=== PATIENT | male | born 1940 | race Caucasian/White ===

== ENCOUNTER → 2016-05-12 08:27 | Outpatient (CLI) | payer MEDICARE, OTHER ==
[2012-09-02 07:48] VITALS: BMI 32.6
[~2016-05-12 08:27] MED LIST: BAYER CHEWABLE81 MG PO; BROVANA15 MCG/2 M NEB; CARDIZEM120 MG PO; COUMADIN5 MG PO; DOXYCYCLINE HY100 M2 PO; DUONEB 2.5-0.5 M3 ML NEB; ENDOCET 10-3251 TAB PO; GLIMEPIRIDE1 MG PO; GLUCOPHAGE500 MG PO; K-DUR20 MEQ PO; LASIX40 MG PO; LISINOPRIL10 MG PO; METROGEL 0.75 %45 GM TP; NEURONTIN 300300 MG PO; OXYGEN INH; PROVENTIL/2.5 MG/3 M NEB; SPIRIVA18 MCG INH; TACLONEX OINTME60 GM TP; TIKOSYN250 MCG PO; VICTOZA0.6 MG/0.1 SQ; ZOCOR10 MG PO
== END | disposition home or self-care (01) ==
LOC: D.RAD 08:27
DX: R13.10 Dysphagia, unspecified (principal); R12 Heartburn

== ENCOUNTER 2016-08-06 13:00 | Day surgery (SDC) | payer MEDICARE, OTHER ==
[~2016-08-06] VITALS: Ht 177.8 cm; Wt 103.0 kg
--- NOTE | ~2016-08-06 | OP ---
PATIENT NAME: FRANK SARABIA MEDICAL RECORD: [id number] :38 LOCATION:[facility]loOPS ADMISSION DATE: SURGEON: TIGIST MADRID DO DATE OF OPERATION: 08/06/2016 PROCEDURE: EGD with biopsies. INDICATIONS FOR PROCEDURE: Dysphagia and heartburn. SCOPE: Olympus video gastroscope. MEDICATIONS: Propofol IV per anesthesia. ESTIMATED BLOOD LOSS: Minimal. COMPLICATIONS: None. FINDINGS: Informed consent was given. The patient was made comfortable with the above medication. After reaching an adequate level of sedation by slow IV push, the patient was placed on his left side. The endoscope was then advanced under direct visualization through the mouth to the second portion of the duodenum. The upper, middle, and distal thirds of the esophagus appeared normal. At the GE junction, there was evidence of LA class A reflux-induced esophagitis. Biopsies were taken at the GE junction. The endoscope was then advanced beyond the GE junction and retroflexed to view the cardia, where a large hiatal hernia was visualized. There was some evidence of prior intervention here, but the fundoplication is not intact. The fundus and body of the stomach appeared normal as did the antrum and prepyloric region. Random biopsies were taken to rule out H. pylori and to submit for histology. The endoscope was advanced beyond the pylorus into the duodenum where the bulb and second portion of the duodenum appeared normal. The endoscope was then withdrawn from the patient. The patient tolerated the procedure well and there were no complications. IMPRESSION: 1. LA class A reflux-induced esophagitis. Biopsies taken. 2. Large hiatal hernia with evidence of prior intervention. PLAN AND RECOMMENDATIONS: 1. Discharge home when recovery parameters are met. 2. Gastroesophageal reflux diet and precautions. 3. Continue current medications. 4. Add Protonix 40 mg daily q.a.m. times 30 days. 5. Follow up in the GI clinic as needed. TRANSINT:[id number] Voice Confirmation ID: [id number] DOCUMENT ID: [id number] OPERATIVE REPORT [id number] FRANK SARABIATIGIST QUIJANO DO CC: [id number] DICTATION DATE: 08/06/16 1709 SOLUTIONS ANALYST: 08/07/16 0014 [facility] 08/06/16 [place] [address]
[2016-08-06] MEDS ORDERED: MINOCIN100 MG PO (14:06)
[2016-08-06 14:25] VITALS: BP 112/66; Ht 177.8 cm; Wt 103.0 kg
[2016-08-06 14:34] LABS: ANION GAP 8.3 mmol/L (8-16); CALCIUM 8.9 mg/dL (8.5-10.1); CARBON DIOXIDE 34.2 mmol/L (21.0-32.0); CREATININE - SERUM 1.5 mg/dL (0.6-1.3); POTASSIUM - SERUM 4.5 mmol/L (3.5-5.1)
[2016-08-06 14:57] LABS: BASOPHILS 0.3 % (0-2); HEMATOCRIT 43.8 % (42.0-54.0); HEMOGLOBIN 13.6 g/dL (13.5-17.5); IMMATURE GRANULOCYTES 0.3 % (0-5); MCH 28.8 pg (26.0-34.0); MCHC 31.1 g/dL (31.0-37.0); MCV 92.6 fL (80.0-100.0); MEAN PLATELET VOLUME 11.4 fL (7.4-10.4); MONOCYTES 9.4 % (2-11); PLATELET COUNT 152 10x3/uL (130-400); RBC 4.73 10x6/uL (4.20-6.10); RDW 14.4 % (11.5-14.5); WBC 6.1 10x3/uL (4.8-10.8)
== END 2016-08-06 18:45 | disposition home or self-care (01) ==
LOC: D.OPS 13:00
PROVIDERS: Anesthesiology
DX: K21.0 Gastro-esophageal reflux disease with esophagitis (principal); K44.9 Diaphragmatic hernia without obstruction or gangrene

== ENCOUNTER → 2016-09-03 11:52 | Day surgery (SDC) | payer MEDICARE, OTHER ==
[~2016-09-03] VITALS: Ht 177.8 cm; Wt 107.3 kg
[~2016-09-03 11:52] MED LIST changes: +FLOMAX0.4 MG PO; +MINOCIN100 MG PO
[2016-09-03 12:21] LABS: BASOPHILS 0.2 % (0-2); HEMATOCRIT 45.5 % (42.0-54.0); HEMOGLOBIN 14.7 g/dL (13.5-17.5); IMMATURE GRANULOCYTES 0.2 % (0-5); LYMPHOCYTES 25.6 % (15-50); MCH 29.2 pg (26.0-34.0); MCHC 32.3 g/dL (31.0-37.0); MCV 90.3 fL (80.0-100.0); MONOCYTES 8.9 % (2-11); NEUTROPHILS 62.1 % (40-80); PLATELET COUNT 125 10x3/uL (130-400); RBC 5.04 10x6/uL (4.20-6.10); RDW 14.1 % (11.5-14.5); WBC 4.9 10x3/uL (4.8-10.8)
[2016-09-03 12:44] LABS: ANION GAP 9.1 mmol/L (8-16); CALCIUM 8.9 mg/dL (8.5-10.1); CARBON DIOXIDE 33.2 mmol/L (21.0-32.0); CREATININE - SERUM 1.4 mg/dL (0.6-1.3); POTASSIUM - SERUM 4.3 mmol/L (3.5-5.1)
[2016-09-03 13:54] VITALS: BP 113/70; Ht 177.8 cm; Wt 107.3 kg
--- NOTE | 2016-09-03 15:41 | NUR ---
CLIPS X 2 USED IN ASCENDING COLON POLYP.
--- NOTE | 2016-09-03 15:43 | NUR ---
1458 CALLED [facility] IN LAB PROTIME ADDED TO BLOOD. STATED OKAY.
--- NOTE | 2016-09-03 15:59 | NUR ---
4 AREAS 1/2CC RAVEN INK USEDIN TRANSVERSE MASS.
[2016-09-03 17:32] LABS: INR 0.92 (0.85-1.17); PROTIME 12.2 SECONDS (11.6-15.0)
--- NOTE | 2016-09-03 17:52 | NUR ---
175-PT ESCORTED TO [facility] AND PICKED UP BY HIS .
== END | disposition home or self-care (01) ==
LOC: D.OPS 11:52
PROVIDERS: Anesthesiology
DX: Z12.11 Encounter for screening for malignant neoplasm of colon (principal); K63.5 Polyp of colon; D12.2 Benign neoplasm of ascending colon; D12.3 Benign neoplasm of transverse colon; K57.30 Diverticulosis of large intestine without perforation or abscess without bleeding; Z01.812 Encounter for preprocedural laboratory examination

== ENCOUNTER 2016-12-05 06:18 | Day surgery (SDC) | payer MEDICARE, OTHER ==
[2016-12-05 07:28] LABS: BASOPHILS 0.3 % (0-2); EOSINOPHILS 2.5 % (0-7); HEMATOCRIT 45.2 % (42.0-54.0); HEMOGLOBIN 14.7 g/dL (13.5-17.5); IMMATURE GRANULOCYTES 0.3 % (0-5); LYMPHOCYTES 23.5 % (15-50); MCH 29.1 pg (26.0-34.0); MCHC 32.5 g/dL (31.0-37.0); MCV 89.5 fL (80.0-100.0); MONOCYTES 8.2 % (2-11); NEUTROPHILS 65.2 % (40-80); PLATELET COUNT 145 10x3/uL (130-400); RBC 5.05 10x6/uL (4.20-6.10); RDW 14.8 % (11.5-14.5); WBC 6.1 10x3/uL (4.8-10.8)
[2016-12-05 07:40] LABS: ANION GAP 12.8 mmol/L (8-16); CALCIUM 8.6 mg/dL (8.5-10.1); CARBON DIOXIDE 29.7 mmol/L (21.0-32.0); CREATININE - SERUM 1.6 mg/dL (0.6-1.3); POTASSIUM - SERUM 4.5 mmol/L (3.5-5.1)
[2016-12-05 09:14] VITALS: BP 107/66; BMI 32.6
[2016-12-05] MEDS ORDERED: VIBRAMYCIN 100100 MG PO (09:27)
--- NOTE | 2016-12-05 10:16 | NUR ---
PT'S PROCEEDURE ON TRANSPORT CART
--- NOTE | 2016-12-05 10:17 | NUR ---
GROUNDING PADS X 2. LEFT THIGH AND CALF PER D.N. L/N [id number].EXP 06/28/18; L/N [id number], EPX 09/26/18
--- NOTE | 2016-12-05 12:50 | NUR ---
PIV REMOVED CATHETER TIP INTACT GERMAN WELL ASSIST UP TO BATHROOM AND EXPLAINED TO GET DRESSED
--- NOTE | 2016-12-05 13:00 | NUR ---
DC TEACHING EXPLAINED PT VU
--- NOTE | 2016-12-05 13:06 | NUR ---
DC ESCORTED OUT VIA WC WITH AT SIDE DAUGHTER DRIVING
--- NOTE | 2016-12-08 16:05 | OP ---
PATIENT NAME: FRANK SARABIA MEDICAL RECORD: [id number] :38 LOCATION:D.OPS ADMISSION DATE: SURGEON: CHRISTI PURCELL MD DATE OF OPERATION: 12/05/2016 PREOPERATIVE DIAGNOSIS: Large polyps times 2. These are complex polyps due to their size and there positioning in the colonic wall. POSTOPERATIVE DIAGNOSES: Large polyps times 2. These are complex polyps due to their size and there positioning in the colonic wall with a cluster of 2 polyps that were sessile polyps, each 1 cm in length. PROCEDURES: 1. Total colonoscopy to cecum. 2. Snare polypectomies times 2. 3. Hemorrhage control with the argon plasma space buyer. 4. Hot biopsy forceps polypectomy times 1. 5. Epinephrine injection through a sclerotherapy needle for hemostasis. SURGEON: Christi Purcell MD ACCOUNT MANAGER B2B: None. BLOOD LOSS: Minimal. ANESTHESIA: General. COMPLICATIONS: None. The risks, possible complications, and alternatives to procedure were explained to the patient. He elects to proceed. DESCRIPTION OF PROCEDURE: The patient was conveyed to the operating room electively on 12/05/2016. General anesthesia was induced by anesthesia staff. The patient was placed in the Glover position. A digital rectal examination was performed. The prostate was normal. A colonoscope was inserted through the anus. It was easily advanced to the cecum. Upon withdrawal, I irrigated and aspirated extensively. The prep was inadequate. The pullback was greater than a 25-minute pullback. Two polyps were noted within the fold. Both were removed utilizing the hot biopsy forceps polypectomy technique and they were both placed in the same specimen container. I then continued to withdraw. I noticed a tattoo. I noticed a large polyp associated with the tattoo. I advanced a sclerotherapy needle. Epinephrine injection to the base of the polyp was performed. There was some central umbilication into this polyp and that is worrisome for a malignancy. This was a piecemeal polypectomy. I advanced an endoscopic snare. I snared off a portion of the polyp. Then, I performed multiple cold endoscopic biopsies. A portion of the polyp, and centrally umbilicated area, was very firm. Once I had removed all the polypoid tissue that I could identify, I then used the argon plasma space buyer with the right colon setting in the forced mode for hemostasis. I then continued to withdraw the endoscope. There was a semi-pedunculated polyp OPERATIVE REPORT [id number] FRANK SARABIA at 40 cm. This was removed utilizing a snare polypectomy technique. I then grasped the polyp with an endoscopic retrieval net and retrieved it through the anus. The most worrisome of the 2 polyps upon entry was at 100 cm, upon exiting it was at 70 cm. It was the one that was tattooed. It is the one I am most concerned about. The patient was then extubated and conveyed to post-anesthesia care unit. I will see him in the office in 2-3 weeks. TRANSINT:[id number] Voice Confirmation ID: [id number] DOCUMENT ID: [id number] CHRISTI PURCELL MD at 1605 CC: JESUS WELCH MD and TIGIST MADRID DO [id number] DICTATION DATE: 12/05/16 1111 COMPUTER METEOROLOGIST: 12/05/16 1205 [facility] 12/05/16 [address] [place] [address]
== END 2016-12-05 13:06 | disposition home or self-care (01) ==
LOC: D.OPS 06:18 → D.PAN 09:00 → D.OPS 09:00 → D.PAN 09:05 → D.OPS 10:30 → D.PAN 10:30 → D.OPS 13:06
PROVIDERS: Anesthesiology
DX: K63.5 Polyp of colon (principal); F17.200 Nicotine dependence, unspecified, uncomplicated; I25.10 Atherosclerotic heart disease of native coronary artery without angina pectoris; I10 Essential (primary) hypertension; E11.9 Type 2 diabetes mellitus without complications; J44.9 Chronic obstructive pulmonary disease, unspecified; Z01.812 Encounter for preprocedural laboratory examination

== ENCOUNTER 2016-12-16 11:32 | Inpatient (IN) | payer MEDICARE, OTHER ==
[~2016-12-16 11:32] MED LIST changes: +VIBRAMYCIN 100100 MG PO
[2016-12-16 12:33] LABS: BASOPHILS 0.5 % (0-2); EOSINOPHILS 0.9 % (0-7); HEMOGLOBIN 12.3 g/dL (13.5-17.5); IMMATURE GRANULOCYTES 0.3 % (0-5); LYMPHOCYTES 17.3 % (15-50); MCH 28.7 pg (26.0-34.0); MCHC 32.4 g/dL (31.0-37.0); MCV 88.8 fL (80.0-100.0); MEAN PLATELET VOLUME 11.1 fL (7.4-10.4); MONOCYTES 6.5 % (2-11); NEUTROPHILS 74.5 % (40-80); RBC 4.28 10x6/uL (4.20-6.10); RDW 14.8 % (11.5-14.5); WBC 8.8 10x3/uL (4.8-10.8)
[2016-12-16 12:34] LABS: PLATELET COUNT 187 10x3/uL (130-400)
[2016-12-16 13:03] LABS: APTT 31.1 SECONDS (22.8-39.4); INR 1.58 (0.85-1.17); PROTIME 18.8 SECONDS (11.6-15.0)
[2016-12-16 13:09] LABS: ALBUMIN 3.7 g/dL (3.4-5.0); ANION GAP 14.3 mmol/L (8-16); BILIRUBIN - TOTAL 0.65 mg/dL (0.2-1.3); CALCIUM 8.8 mg/dL (8.5-10.1); CREATININE - SERUM 1.7 mg/dL (0.6-1.3); POTASSIUM - SERUM 5.3 mmol/L (3.5-5.1); PROTEIN - SERUM 6.6 g/dL (6.4-8.2)
--- NOTE | 2016-12-16 17:30 | NUR ---
PT WAS RECEIVED FROM X-RAY. HE HAS BEEN HAVING RECTAL BLEEDING SINCE SAT AM. HE IS ALSO HAVING SRI ABDOMINAL CRAMPING. HE STATES THAT HE HAD A COLONOSCOPY BY DR BAKER ON Nov. HE REMOVED SOME POLYPS. HE STATTES THAT HE IS STILL HAVING SOME BLEEDING. HE SAID HE WAS STARTED BACK ON COUMADIN BY HIS PCP AND IT MAY HAVE BEEN TO SOON. HE IS GOING BACK TO SURGERY IN THE AM WITH DR BAKER FOR SCOPE SEE WHERE BLEEDING IS. HE HAS AN IV LEFT AC. NS INFUSING AT 100 CC/HR. HE IS ON O2 AT 3 LITERS. O2 SAT WAS 94 %.
--- NOTE | 2016-12-16 17:32 | NUR ---
PT WAS TRANSPORTED TO 2234 VIA WHEELCHAIR FROM X-RAY. HIS AND DAUGHTER ARE WITH HIM. PT WAS TRANSFERRED FROM WHEELCHAIR TO BED. VSS.
--- NOTE | 2016-12-16 17:40 | NUR ---
PT REQUESTED COFFEE. HE HAS A DIABETIC DIET ORDERED. CALLED DIETARY FOR HIM A DIET. GAVE HIM A CUP OF COFFEE. PT IS SITTING ON SIDE OF BED.
--- NOTE | 2016-12-16 17:53 | NUR ---
HIS BS WAS 161. HE NEEDS 2 UNITS OF INSULIN. I CALLED PHARMACY FOR HIS INSULIN.
--- NOTE | 2016-12-16 18:14 | NUR ---
DR PURCELL IS HERE TO SEE PT. DISCUSSED PROCEDURE WITH PT.
[2016-12-16 19:46] VITALS: BP 108/61; BMI 32.6
[2016-12-16 20:00] VITALS: BP 153/106
--- NOTE | 2016-12-16 20:30 | NUR ---
ADMISSION ASSESSMENT AND HX COMPLETE PER FLOWHSEET. A&O X4 WITH NO SIGNS OF ACUTE DISTRESS NOTED. PACEMAKER TO L UPPER CHEST. LUNG SOUNDS CLEAR. ABD IS FIRM AND DISTENDED, BS ACTIVE X4. RADIAL AND PEDAL PULSES PALP. LOWER LEGS HAVE A DISCOLORATION OF DARK PURPLE/BLUE. HE STATES THAT IT IS NORMAL FOR HIM. AT BEDSIDE. MED REC COMPLETE. WILL CONT WITH POC.
--- NOTE | 2016-12-16 22:25 | NUR ---
CALLED PHARMACY ABOUT GOLYTELY. RECIEVED IT SHORTLY AFTER. INSTRUCTED PT TO DRINK 1/2 OF SOLUTION. HE STATES THAT HE UNDERSTANDS. WILL CONT WITH POC.
[2016-12-16 22:35] LABS: HEMATOCRIT 31.3 % (42.0-54.0); HEMOGLOBIN 10.2 g/dL (13.5-17.5)
--- NOTE | 2016-12-16 23:15 | NUR ---
PT IS FINISHED WITH RADHA. NPO OF NOW. WILL CONT WITH POC.
--- NOTE | 2016-12-17 01:30 | NUR ---
PT RESTING PEACEFULLY WITH AT BEDSIDE. HE DENIES ANY REQUESTS. WILL CONT TO MONITOR.
--- NOTE | 2016-12-17 04:08 | NUR ---
NO SIGNS OF ACUTE DISTRESS NOTED. PT RESTING ON HIS R SIDE WITH HIS AT HIS BEDSIDE. WILL CONT TO MONITOR.
[2016-12-17 06:27] LABS: BASOPHILS 0.3 % (0-2); EOSINOPHILS 2.9 % (0-7); HEMATOCRIT 30.9 % (42.0-54.0); IMMATURE GRANULOCYTES 0.3 % (0-5); MCH 28.8 pg (26.0-34.0); MCHC 32.4 g/dL (31.0-37.0); MONOCYTES 9.5 % (2-11); PLATELET COUNT 152 10x3/uL (130-400); RBC 3.47 10x6/uL (4.20-6.10); RDW 14.8 % (11.5-14.5)
[2016-12-17 06:28] LABS: WBC 5.8 10x3/uL (4.8-10.8)
[2016-12-17 06:54] LABS: ANION GAP 12.5 mmol/L (8-16); CALCIUM 7.9 mg/dL (8.5-10.1); CARBON DIOXIDE 28.5 mmol/L (21.0-32.0); CREATININE - SERUM 1.5 mg/dL (0.6-1.3)
--- NOTE | 2016-12-17 08:00 | NUR ---
PT IS LYING IN BED RESTING. HE OFFERS NO COMPLAINTS. HE IS GOING TO HAVE A COLONOSCOPY TODAY TO REEVALUATE POLYPS. HIS IS AT BEDSIDE. GEN- AWAKE AND ALERT. LUNGS CLEAR. HEART- RRR. ABD- SOFT WITH GOOD BS. EXT- NO EDEMA. IV PATENT LEFT AC. BED IS LOW, SIDE RAILS UP X 2 AND CALL LIGHT IN REACH.
[2016-12-17 09:18] VITALS: BP 112/69
--- NOTE | 2016-12-17 10:34 | NUR ---
TALKED TO ERLIN OREILLY SHE ASKED ME TO GET BS ON HIM AND HAND D5W AT 5O CC/HR. BS WAS 120. D5W INITIATED.
--- NOTE | 2016-12-17 10:54 | NUR ---
PT IS UP TO SHOWER AND LINENS CHANGED. IV WAS SALINE LOCKED AND COVERED FOR SHOWER.
[2016-12-17 12:32] VITALS: BP 129/73
--- NOTE | 2016-12-17 13:01 | NUR ---
PT IS DISCHARGED FROM INPATIENT AND PLACED IN INPATIENT HOSPICE CARE. NEW ORDERS NOTED. FAMILY AT BEDSIDE. HOPICE NURSE AT BEDSIDE DOING ASSESSMENT.
--- NOTE | 2016-12-17 13:31 | NUR ---
Patient Name: FRANK SARABIA Admission Status: ER Accout number: [id number] Admission Date: 12-16-2016 : 1940 Admission Diagnosis: Attending: CHRISTI PURCELL Current LOS: 1 Anticipated DC Date: 12-19-2016 Planned Disposition: Home Primary Insurance: MEDICARE A & B Discharge Planning Comments: CM MET WITH PATIENT AND (ALISA) REGARDING D/C NEEDS AND PLANS. PATIENT STATED HE HAS 3 STEPS TO ENTER HOME AND NO STAIRS INSIDE. PATIENT IS INDEPENDENT AT HOME AND HAS A WHEELCHAIR, CANE, SHOWER STOOL, BS COMMODE, NEBULIZER, PORTABLE O2, AND OXYGEN 24/7 AT HOME. OXYGEN IS SUPPLIED BY [facility] PATIENT. PATIENTS PCP IS DR. AGUILLON IN [place] AND USES [facility] IN [place]. PATIENT DOES NOT WANT HOME HEALTH AT THIS TIME. CM WILL CONTINUE TO FOLLOW PATIENT WITH D/C NEEDS AND PLANS. PCP DR. AGUILLON [facility] [phone] ALISA () [phone] [place] [employer] Professor: Lucy Estrada Is the patient Alert and Oriented? Yes 0 * How many steps to enter\exit or inside your home? 3 0 * PCP DR. AGUILLON 0 * Pharmacy [facility] IN [facility]. 0 * Preadmission Environment Home with Family 0 * ADLs Independent 0 * Equipment Bedside Commode Cane Nebulizer Oxygen Shower Chair Wheelchair 0 * Other Equipment PORTABLE O2 0 * List name and contact numbers for known caregivers / representatives who currently or will assist patient after discharge: ALISA () [phone] 0 * Community resources currently utilized None 0 * Additional services required to return to the preadmission environment? Yes 0 * Can the patient safely return to the preadmission environment? Yes 0 * Has this patient been hospitalized within the prior 30 days at any hospital? No 0 Grand Total: 0
--- NOTE | 2016-12-17 14:14 | NUR ---
PT AND ARE PATIENTLY WAITING FOR HIS PROCEDURE. HIS IV WAS CHANGED FROM D5W TO D5 1/2 NS AT 50 CC/HR
[2016-12-17] MEDS ORDERED: NEURONTIN600 MG PO (14:49)
[2016-12-17] MEDS ORDERED: COUMADIN10 MG PO (14:51)
[2016-12-17 15:21] VITALS: BMI 32.5
[2016-12-17 17:28] VITALS: BP 122/84
--- NOTE | 2016-12-17 18:21 | NUR ---
PT RECEIVED FROM SURGERY. HE IS DOING WELL. ORDERS POST SURGERY REVIEWED.
--- NOTE | 2016-12-17 18:36 | NUR ---
PT IS SITTING UP IN BED. HE OFFERS NO COMPLAINTS. HE STATES HE WOULD LIKE SOME COFFEE.
--- NOTE | 2016-12-17 19:37 | NUR ---
RECIEVED UP IN BED WITH EYES OPEN AND TV ON. SPOUSE AT BEDSIDE. IV TO LEFT AC WITH NS RUNNING AT 100CC/HR. IV PATENT. PT HAS ABD DISTENTION. BILATERAL LEGS AND FEET CYANOTIC IN COLOR. SEVERAL LARGE BRUISES TO UPPER EXTREMITIES BLACK IN COLOR. ASKED HOW THAT HAPPEN HE STATED" OH I BUMP MY ARM ON STUFF ALL THE TIME. PEDAL PULSES ABSENT. BOWEL SOUNDS ACTIVE IN ALL QUADRANTS. PLEASANT AND COOPERATIVE. ALERT AND ORIENTED. DENIES ANY P[AIN AT THIS TIME. O2@2 LITERS PER N/C WITH RESP. EVEN AND UNLABORED. LUNG SOUNDS CLEAR IN ALL GAMEZ.
[2016-12-17 20:00] VITALS: BP 126/65
[2016-12-18] VITALS: BP 112/64; BP 141/71
[2016-12-18 04:00] VITALS: BP 141/71
[2016-12-18 05:36] LABS: BASOPHILS 0.2 % (0-2); EOSINOPHILS 1.6 % (0-7); HEMATOCRIT 28.1 % (42.0-54.0); HEMOGLOBIN 8.9 g/dL (13.5-17.5); IMMATURE GRANULOCYTES 0.3 % (0-5); MCH 28.3 pg (26.0-34.0); MCHC 31.7 g/dL (31.0-37.0); MCV 89.5 fL (80.0-100.0); MONOCYTES 7.3 % (2-11); NEUTROPHILS 74.6 % (40-80); PLATELET COUNT 146 10x3/uL (130-400); RBC 3.14 10x6/uL (4.20-6.10); WBC 5.8 10x3/uL (4.8-10.8)
[2016-12-18 06:02] LABS: ALBUMIN 3.2 g/dL (3.4-5.0); ANION GAP 10.7 mmol/L (8-16); BILIRUBIN - TOTAL 0.79 mg/dL (0.2-1.3); CALCIUM 8.1 mg/dL (8.5-10.1); CARBON DIOXIDE 28.1 mmol/L (21.0-32.0); CREATININE - SERUM 1.4 mg/dL (0.6-1.3); POTASSIUM - SERUM 3.8 mmol/L (3.5-5.1); PROTEIN - SERUM 5.7 g/dL (6.4-8.2)
--- NOTE | 2016-12-18 07:00 | NUR ---
REPORT RECEIVED, ASSUMED CARE OF PT. RESTING, FAMILY AT BEDSIDE. L AC IV INFUSING ORDERED, PATENT, DRSG C/D/I. 3L O2 VIA NASAL CANNULA IN PLACE. NO NEEDS VOICED AT THIS TIME. BED IN LOWEST POSITION, SIDE RAILS UP X 2, CALL LIGHT WITHIN REACH.
[2016-12-18 08:30] VITALS: BP 115/70
[2016-12-18 12:01] VITALS: BP 135/70
--- NOTE | 2016-12-18 14:03 | OP ---
PATIENT NAME: FRANK SARABIA MEDICAL RECORD: [id number] :38 LOCATION:D.MS [id number] ADMISSION DATE:12/16/16 SURGEON: BETO PURCELL MD DATE OF OPERATION: 12/17/2016 PREOPERATIVE DIAGNOSIS: Post-polypectomy bleeding on a patient who has been anticoagulated on Coumadin. POSTOPERATIVE DIAGNOSIS: Post-polypectomy bleeding on a patient who has been anticoagulated on Coumadin. PROCEDURES: 1. Total colonoscopy to cecum. 2. Argon plasma coagulation therapy to the polypoid lesion that has been bleeding. This is a radiofrequency type of device that can control hemostasis. 3. Placement of 2 endoscopic clips. SURGEON: Beto Purcell MD COMPENSATION SUPERVISOR: None. BLOOD LOSS: Minimal. ANESTHESIA: General. COMPLICATIONS: None. The risks, possible complications and alternatives to the procedure were explained to the patient. He elects to proceed. The discussion specifically included, but was not limited to, bleeding requiring an emergency reoperation, infection, endoscopic perforation, and the need for an open procedure. ENDOSCOPIC COURSE: The patient was conveyed to the operating room electively on 12/17/2016. General anesthesia was induced by the anesthesia staff. The patient was placed in the Glover position. A digital rectal examination was performed. A colonoscope was inserted through the anus. It was easily advanced to the cecum. Upon withdrawal, I irrigated and aspirated extensively. The bleeding polyp was identified. I utilized the argon plasma criminal justice lawyer with the right colon setting in the forced mode. I then placed 2 endoscopic clips for additional hemostasis. There was no further bleeding. I withdrew into the rectum. A retroflexed view was obtained in the rectum. I then unretroflexed the scope and removed it under direct vision. We are going to watch the patient overnight. If there is no further bleeding, I anticipate that he can be dismissed home tomorrow. TRANSINT:[id number] Voice Confirmation ID: [id number] DOCUMENT ID: [id number] OPERATIVE REPORT [id number] FRANK SARABIA ROBERT MD at 1403 CC: [id number] DICTATION DATE: 12/18/16 1055 AIRLINE MANAGERIAL SUPERVISOR: 12/18/16 1156 ADM IN [id number] [place] [address]
--- NOTE | 2016-12-18 14:03 | HP ---
PATIENT: FRANK SARABIA MEDICAL RECORD: [id number] ACCOUNT: [id number] LOCATION:D.MS Gonzalez : 38 ADMISSION DATE: 12/16/16 HISTORY AND PHYSICAL EXAMINATION ADDENDUM DATE OF ADMISSION: 12/16/2016 CHIEF COMPLAINT: Bleeding. HISTORY OF PRESENT ILLNESS: The patient has had intermittent bleeding since he resumed his Coumadin. The patient underwent a recent polypectomy utilizing argon plasma wolf hunter. Symptoms are intermittent. The bleeding is not a large amount. He has not developed shock or hypotension. He says he is just bleeding with bowel movements. Symptoms are intermittent. He has had no nausea, no vomiting, no fever, no chills. This is a history and physical addendum. For the typed portion of the history and physical, please see the chart. This would include the past medical and surgical history, current medications, social history, family history, as well as allergies. REVIEW OF SYSTEMS: As described above, otherwise negative. It is somewhat difficult to communicate with him as he is hard of hearing. PHYSICAL EXAMINATION: GENERAL: The patient does not appear acutely ill. He does not appear chronically ill. VITAL SIGNS: Reviewed. EARS: External ears appear normal. He is hard of hearing. EYES: Extraocular movements are intact. NECK: Trachea is midline. CHEST: No intercostal retractions. PULMONARY: Mildly labored. No stridor. ABDOMEN: No peritonitis. EXTREMITIES: No peripheral cyanosis. INTEGUMENT: No rash. 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 NEUROLOGIC: Hard of hearing, answers questions appropriately otherwise, however. PSYCHIATRIC: Normal affect. BACK: No thoracic kyphosis. LYMPHATICS: No lymphangitic streaking of the exposed extremities. IMPRESSION: Post-polypectomy bleeding in a patient, who is anticoagulated on Coumadin. PLAN: Hold the Coumadin. Bowel prep. Therapeutic colonoscopy tomorrow for hemorrhage control. TRANSINT:[id number] Voice Confirmation ID: [id number] DOCUMENT ID: [id number] HISTORY AND PHYSICAL [id number] FRANK SARABIA, CHRISTI ARECHIGA at 1403 CC: [id number] DICTATION DATE: 12/18/16 1051 SHUTDOWN COORDINATOR: 12/18/16 1110 [place] [address]
--- NOTE | 2016-12-18 14:34 | NUR ---
L AC IV DISCONTINUED, BLEED CONTROL, BANDAGE APPLIED.
--- NOTE | 2016-12-18 14:36 | NUR ---
CM REASSESSMENT NOTE: PATIENT IS DISCHARGING HOME TODAY. FAMILY DRIVING PATIENT HOME. PATIENT REFUSING HOME HEALTH AND HAD NO OTHER NEEDS FOR DISCHARGE.
--- NOTE | 2016-12-18 14:48 | NUR ---
DISCHARGE INSTRUCTIONS GIVEN TO PATIENT, VERBALIZED UNDERSTANDING AND SIGNED. ALL QUESTIONS ANSWERED. PERSONAL BELONGINGS WITH PT AND TRANSPORTED TO FAMILY VEHICLE VIA WHEELCHAIR WITH HOSPITAL STAFF.
--- NOTE | 2016-12-24 10:17 | DS ---
PATIENT:FRANK SARABIA :38 MEDICAL RECORD: [id number] DISCHARGE SUMMARY ADMISSION DATE: 12/16/16 DISCHARGE DATE: 12/18/16 PRINCIPAL DIAGNOSES: 1. Lower gastrointestinal bleeding due to a post-polypectomy bleeding 2. Acute blood loss anemia. 3. Renal insufficiency. 4. History of pacemaker. 5. Hypertension. 6. Chronic obstructive pulmonary disease. 7. Emphysema. 8. History of pneumonia, on home O2. 9. History of sleep apnea. 10. History of asbestosis. 11. History of right total knee replacement. 12. History of knee arthroscopy. 13. History of umbilical hernia repairs times 2. PROCEDURES: 1. Total colonoscopy to cecum. 2. Argon plasma coagulation therapy to the bleeding ulcer with application of clips. HOSPITAL COURSE: The patient was admitted through the Emergency Room. He underwent a bowel prep. He then underwent the above operative procedure. He had no further bleeding. He is being dismissed home. I will see him in the office on the 16 of this month. He already has an appointment. TRANSINT:[id number] Voice Confirmation ID: [id number] DOCUMENT ID: [id number] CHRISTI PURCELL MD at 1017 CC: [id number] DICTATION DATE: 12/18/16 1342 CAT SKINNER: 12/18/16 6277 DIS IN 12/18/16 [facility] [address] [place] [address]
== END 2016-12-18 14:53 | disposition home or self-care (01) | DRG 394 ==
LOC: D.ER 11:32 → D.SDCHOLD 15:38 → D.MS 15:38
PROVIDERS: Emergency Medicine; Family Medicine; ADMIT Surgery
PROC: 0W3P8ZZ Control Bleeding in Gastrointestinal Tract, Via Natural or Artificial Opening Endoscopic (ICD-10-PCS; principal; 2016-12-17 15:00)
DX: K91.89 Other postprocedural complications and disorders of digestive system (principal); N17.9 Acute kidney failure, unspecified; D62 Acute posthemorrhagic anemia; Y83.8 Other surgical procedures as the cause of abnormal reaction of the patient, or of later complication, without mention of misadventure at the time of the procedure; E11.9 Type 2 diabetes mellitus without complications; I10 Essential (primary) hypertension; Z95.0 Presence of cardiac pacemaker; R13.10 Dysphagia, unspecified; G47.33 Obstructive sleep apnea (adult) (pediatric); Z87.891 Personal history of nicotine dependence; N28.9 Disorder of kidney and ureter, unspecified; J43.9 Emphysema, unspecified